=== PATIENT | female | born 1995 | race Caucasian/White ===

== ENCOUNTER 2019-04-06 20:17 | Emergency (ER) | payer BC, OTHER ==
[2019-04-06 20:31] VITALS: BP 77/64
[2019-04-06] MEDS ORDERED: NS 0.9% 1000 ML** 1,000 ML IV ONE (20:47)
[2019-04-06] MEDS ORDERED: methylPREDNISolone 125 MG* 2 ML VIAL IV ONE (20:48)
[2019-04-06] MEDS ORDERED: diPHENhydraMINE PO* 25 MG PO ONE (20:49)
--- NOTE | 2019-04-06 20:56 | UC ---
Headache HPI - HPI Summary HPI Summary: This patient is a 24-year-old female who presents to the urgent care with a chief complaint of having headache, neck pain, sore throat, rash with erythema all over her body. She reports that yesterday started having a sore throat which was pretty painful and she started taking Bactrim. Told today that shes been having this rash, fevers and then she developed the headache and neck pain. Therefore she decided to come to the urgent care for further assessment. The patient reports no photophobia however she does have a headache, neck pain and neck stiffness. - History Of Current Complaint Chief Complaint: UCRash Stated Complaint: FEVER RASH Time Seen by Provider: 04/06/19 20:38 Hx Obtained From: Patient, Family/Patient Carrier Hx Last Menstrual Period: beginning of march Onset/Duration: Gradual Onset Initially Headache Was: Mild Currently Pain Is: Moderate Pain Intensity: 7 - Allergies/Home Medications Allergies/Adverse Reactions: Allergies Allergy/AdvReac Type Severity Reaction Status Date / Time cefdinir Allergy Intermediate vomitting Verified 04/06/19 20:32 Home Medications: Home Medications ALPRAZolam TAB* [Xanax TAB*] 0.25 mg PO Q6H PRN 04/06/19 [History Confirmed ] Ibuprofen TAB* [Motrin TAB* 800 MG] 400 mg PO Q6H PRN 04/06/19 [History Confirmed 04/06/19] PMH/Surg Hx/FS Hx/Imm Hx - Additional Past Medical History Additional PMH: Mastoiditis, mononucleosis, sepsis Previously Healthy: Yes - Surgical History Surgical History: Yes Surgery Procedure, Year, and Place: septoplasty for chronic sinusitis. wisdom teeth - Family History Known Family History: Positive: None, Other - NONCONTRIBUTORY Family History: R & n/C - Social History Alcohol Use: Weekly Substance Use Type: None Smoking Status (MU): Never Smoked Tobacco - Immunization History Most Recent Influenza Vaccination: 2014 Most Recent Tetanus Shot: 2013 Most Recent Pneumonia Vaccination: never Review of Systems All Other Systems Reviewed And Are Negative: Yes Constitutional: Positive: Fever, Chills, Fatigue Skin: Positive: Rash Eyes: Positive: Negative ENT: Positive: Sore Throat Respiratory: Positive: Negative Cardiovascular: Positive: Negative Gastrointestinal: Positive: Negative Genitourinary: Positive: Negative Motor: Positive: Negative Neurovascular: Positive: Negative Musculoskeletal: Positive: Arthralgia, Other: - Neck pain and stiffness Neurological: Positive: Negative Psychological: Positive: Negative Is Patient Immunocompromised?: No Physical Exam - Summary Physical Exam Summary: VITAL SIGNS: Reviewed. GENERAL: Patient is a well developed and nourished female who is lying comfortable in the stretcher. Patient is not in any acute respiratory distress. HEAD AND FACE: No signs of trauma. No ecchymosis, hematomas or skull depressions. No sinus tenderness. EYES: PERRLA, EOMI x 2, No injected conjunctiva, no nystagmus. EARS: Hearing grossly intact. Ear canals and tympanic membranes are within normal limits. MOUTH: Oropharynx within normal limits. NECK: Supple, trachea is midline, no adenopathy, no JVD, no carotid bruit, positive neck stiffness CHEST: Symmetric, no tenderness at palpation LUNGS: Clear to auscultation bilaterally. No wheezing or crackles. CVS: Regular rate and rhythm, S1 and S2 present, no murmurs or gallops appreciated. ABDOMEN: Soft, non-tender. No signs of distention. No rebound no guarding, and no masses palpated. Bowel sounds are normal. EXTREMITIES: FROM in all major joints, no edema, no cyanosis or clubbing. NEURO: Alert and oriented x 3. No acute neurological deficits. Speech is normal and follows commands. SKIN: Dry and warm, possitive diffuse eryythema and rash Triage Information Reviewed: Yes Vital Signs: Initial Vital Signs Temp 100.3 F 04/06/19 20:26 Pulse 109 04/06/19 20:26 Resp 18 04/06/19 20:26 BP 77/64 04/06/19 20:26 Pulse Ox 98 04/06/19 20:26 Headache Course/Dx - Course Course Of Treatment: In the ED course, the patient is flushed, she has a low-grade fever of 100.3 given that she just took ibuprofen just before coming into the urgent care. She also has an erythema all over her body and she has neck stiffness, she reports a headache and she is hypotensive. Therefore, we obtained an IV access , he patient was given IV fluids, she was given Solu-Medrol and Benadryl. At this point I believe that the patient needs to go to the emergency department for further workup and management. The patient is mentating well, we will transfer the patient via ambulance. The patients mother and agrees with the transfer to the emergency department. Rapid strep negative - Differential Dx/Diagnosis Provider Diagnosis: Headache, Neck pain, Allergic reaction, Hypotension Discharge - Sign-Out/Discharge Documenting (check all that apply): Patient Departure All imaging exams completed and their final reports reviewed: No Studies - Discharge Plan Condition: Stable Disposition: TRANS HIGHER LVL OF CARE FAC Referrals: Non Staff,Doctor [Primary Care Provider] - - Billing Disposition and Condition Condition: STABLE Disposition: Trans Higher Lvl of Care Fac
== END 2019-04-06 21:05 | disposition short-term general hospital (02) ==
LOC: UCEAST 20:17
DX: R51 Headache (principal); M54.2 Cervicalgia; T78.40XA Allergy, unspecified, initial encounter; X58.XXXA Exposure to other specified factors, initial encounter; I95.9 Hypotension, unspecified; Z88.1 Allergy status to other antibiotic agents
CPT/HCPCS: 87651; 96360; 99203; G0463

== ENCOUNTER 2019-04-06 21:29 | Emergency (ER) | payer BC ==
[2019-04-06] MEDS ORDERED: NS 0.9% 1000 ML** 1,000 ML IV.FLUID IV ONE (21:43)
--- NOTE | 2019-04-06 21:50 | ED ---
HPI Febrile Illness - HPI Summary HPI Summary: Pt is a 24 y/o F presenting to the ED brought in by EMS with a chief complaint of a febrile illness. Last night, she noticed a sore throat, took a dose of Bactrim and went to sleep. She vomited phlegm all night, had a worse sore throat this morning with a subjective fever, chills, nausea, dehydration, and fatigue. She is now noticing a rash on her chest and slight neck pain when looking down. - History of Current Complaint Chief Complaint: EDFever Hx Obtained From: Patient Hx Last Menstrual Period: beginning of march Onset/Duration: Started Hours Ago, Still Present Timing: Constant, Lasting Hours Initial Severity: Mild Current Severity: Moderate Aggravating Factors: Nothing Alleviating Factors: Nothing Associated Signs and Symptoms: Chills, Drainage, Fluid Intake - decreased, Nausea, Rash, Sore Throat, Vomiting, Other: - neck pain w/ looking down - Additional Pertinent History Primary Care Physician: TO - Allergy/Home Medications Allergies/Adverse Reactions: Allergies Allergy/AdvReac Type Severity Reaction Status Date / Time cefdinir Allergy Intermediate vomitting Verified 04/06/19 20:32 sulfamethoxazole Allergy Hives Verified 04/06/19 21:49 [From Bactrim] trimethoprim [From Bactrim] Allergy Hives Verified 04/06/19 21:49 PMH/Surg Hx/FS Hx/Imm Hx Previously Healthy: Yes Endocrine/Hematology History: Denies: Hx Diabetes, Hx Thyroid Disease Cardiovascular History: Denies: Hx Hypertension Respiratory History: Denies: Hx Asthma, Hx Chronic Obstructive Pulmonary Disease (COPD) GI History: Denies: Hx Ulcer History: Denies: Hx Renal Disease Sensory History: Reports: Hx Contacts or Glasses [facility] Opthamlomology History: Reports: Hx Contacts or Glasses - [facility] at [facility] Psychiatric History: Reports: Hx Anxiety - Surgical History Surgery Procedure, Year, and Place: septoplasty for chronic sinusitis. wisdom teeth Hx Anesthesia Reactions: No Infectious Disease History: Reports: Hx Shingles Denies: Hx Hepatitis, Hx Human Immunodeficiency Virus (HIV), History Other Infectious Disease - Family History Known Family History: Negative: Cardiac Disease - Social History Alcohol Use: Weekly Hx Substance Use: No Substance Use Type: Reports: None Hx Tobacco Use: No Smoking Status (MU): Never Smoked Tobacco Review of Systems Positive: Fever, Chills, Fatigue, Other - dehydration Positive: Other - neck pain when looking down Positive: Vomiting, Nausea Positive: Rash All Other Systems Reviewed And Are Negative: Yes Physical Exam - Summary Physical Exam Summary: Appearance: Healthy appearing young woman lying on stretcher in [employer]. Skin: Warm, dry, somewhat flushed with few urticarial lesions about her chest. Eyes: sclera anicteric, no conjunctival pallor ENT: mucous membranes moist, pharynx is injected and her tonsils are swollen without exudate. No stridor or other signs of upper airway obstruction. Neck: Supple, nontender. No Kernig or Brudzinski signs, or any meningismus. Respiratory: Clear to auscultation, no signs of respiratory distress Cardiovascular: Normal S1, S2. No murmurs. Normal distal pulses in tibial and radial bilaterally. Abdomen: Soft, nontender, normal active bowel sounds present Musculoskeletal: Normal, Strength/ROM Intact Neurological: A&Ox3, awake and alert, mentation is normal, speech is fluent and appropriate Psychiatric: affect is normal, does not appear anxious or depressed Triage Information Reviewed: Yes Vital Signs Reviewed: Yes Diagnostics - Laboratory Result Diagrams: 04/06/19 22:31 04/06/19 22:31 Lab Statement: Any lab studies that have been ordered have been reviewed, and results considered in the medical decision making process. Course/Dx - Course Course Of Treatment: Pt is a 24 y/o F presenting to the ED brought in by EMS with a chief complaint of a febrile illness. She reports sore throat this morning with a subjective fever, chills, nausea, vomiting, dehydration, and fatigue. She is now noticing a rash on her chest and slight neck pain when looking down. The pt's physical exam reveals an injected pharynx and edematous tonsils without exudate. There is no stridor or other signs of upper airway obstruction. She has no Kernig or Brudzinski signs, as well as any meningismus. She does have some urticarial lesions about her chest. Pts hematology shows plt count of 126, absolute neuts of 9.3 and absolute lymphs of 0.1. Her chemistry shows a Potassium of 3.2, Calcium of 8.0, and total protein of 5.8. Her urine shows trace ketones, 1+ blood, 1+ leukocyte esterase, 2+ WBC, 1+ RBC, present squamous epithelial cells, and 2+ bacteria. She is negative for Influenza A & B, as well as strep. Her lactic acid was 1.8 initially, and is now 0.9 with the results of the second bloodwork. The pt will be d/c'ed with a dx of pharyngitis. She is stable and agreeable with this plan. - Diagnoses Provider Diagnoses: Pharyngitis Discharge - Sign-Out/Discharge Documenting (check all that apply): Patient Departure Patient Received Moderate/Deep Sedation with Procedure: No - Discharge Plan Condition: Good Disposition: HOME Prescriptions: predniSONE [Prednisone 20 MG TAB] 40 mg PO DAILY 5 Days #10 tablet Patient Education Materials: Pharyngitis (ED), Antibiotic Medication Allergy ( ED) Referrals: [facility] [Outside] Additional Instructions: I think the rash is most likely a reaction to the bactrim antibiotic, and will likely take the better part of the week to dissipate. There is no specific treatment, although the prednisone may hasten resolution slightly; it may also help a bit with the sore throat. - Billing Disposition and Condition Condition: GOOD Disposition: Home - Attestation Statements Document Initiated by Tara: Yes Documenting Scribe: Moni Boles Provider For Whom Tara is Documenting (Include Credential): Ed Luo MD. Scribe Attestation: Moni Mancilla, terrelled for Ed Luo MD. on 04/10/19 at 0439. Scribe Documentation Reviewed: Yes Provider Attestation: The documentation as recorded by the [email or web address] accurately reflects the service I personally performed and the decisions made by Ed meza MD. Status of Scribe Document: Viewed
[2019-04-06 22:26] LABS: Rapid Strep Molecular Negative (Negative)
[2019-04-06 22:34] LABS: Influenza A Molecular NEGATIVE (Negative); Influenza B Molecular NEGATIVE (Negative)
[2019-04-06 23:01] LABS: ABS Eosinophils 0.1 10^3/ul (0-0.6); ABS Lymphocytes 0.1 10^3/ul (1.0-4.8); ABS Monocytes 0.3 10^3/ul (0-0.8); ABS Neutrophils 9.3 10^3/ul (1.5-7.7); Eosinophil % 1.1 %; Hematocrit 37 % (35-47); Hemoglobin 12.8 g/dL (12.0-16.0); Lymphocyte % 1.1 %; Mean Corpuscular HGB Conc 35 g/dL (31-36); Mean Corpuscular Hemoglobin 31 pg (27-31); Mean Corpuscular Volume 89 fL (80-97); Mean Platelet Volume 9.5 fL (7.4-10.4); Nucleated Red Blood Cells % 0.1; Platelet Count 126 10^3/uL (150-450); Red Blood Count 4.12 10^6 /uL (3.70-4.87); Red Cell Distribution Width 13 % (10.5-15); White Blood Count 9.8 10^3/uL (3.5-10.8)
[2019-04-06 23:07] LABS: Urine Appearance Turbid; Urine Bacteria 2+ (Absent); Urine Bilirubin Negative (Negative); Urine Blood 1+ (Negative); Urine Color Yellow; Urine Glucose Negative (Negative); Urine Ketones Trace (Negative); Urine Nitrite Negative (Negative); Urine Protein Negative (Negative); Urine Red Blood Cell 1+(3-5/hpf) (Absent); Urine Specific Gravity 1.005 (1.010-1.030); Urine Squamous Epithelial Cell Present (Absent); Urine Urobilinogen Negative (Negative); Urine White Blood Cell 2+(11-20/hpf) (Absent)
[2019-04-06] MEDS ORDERED: EPINEPHRINE 1 MG/ML 1 ML VIAL IM ONE (23:09)
[2019-04-06 23:11] LABS: Albumin 3.6 g/dL (3.2-5.2); Albumin/Globulin Ratio 1.6 (1-3); BUN/Creatinine Ratio 16.5 (8-20); EGFR African American 101.2 (>60); EGFR Non-African American 83.6 (>60); Globulin 2.2 g/dL (2-4); Potassium 3.2 mmol/L (3.5-5.0); Total Bilirubin 0.9 mg/dL (0.2-1.0); Total Protein 5.8 g/dL (6.4-8.9)
[2019-04-07] MEDS ORDERED: Acetaminophen TAB* 325 MG PO ONE (00:11)
[2019-04-07] MEDS ORDERED: predniSONE TAB* 20 MG PO ONE (03:40)
[2019-04-07 03:51] VITALS: BP 90/52
== END 2019-04-07 03:55 | disposition home or self-care (01) ==
LOC: ED 21:29
DX: J02.9 Acute pharyngitis, unspecified (principal)
CPT/HCPCS: 36415; 80053; 81003; 81015; 83605; 85025; 87040; 87086; 87651; 96360; 96372; 99284; A9270-GY; J7512